=== PATIENT | male | born 1985 | race Caucasian/White ===

== ENCOUNTER 2017-03-28 12:42 | Emergency (ER) | payer OTHER | END 2017-03-28 13:47 | disposition home or self-care (01) | LOC: FER 12:42 | DX: S33.5XXA Sprain of ligaments of lumbar spine, initial encounter (principal); F17.210 Nicotine dependence, cigarettes, uncomplicated; W51.XXXA Accidental striking against or bumped into by another person, initial encounter; Y92.009 Unspecified place in unspecified non-institutional (private) residence as the place of occurrence of the external cause | CPT/HCPCS: J1100 ==

== ENCOUNTER 2017-04-20 20:48 | Emergency (ER) | payer OTHER | END 2017-04-20 22:30 | disposition home or self-care (01) | LOC: FER 20:48 | DX: S06.0X0A Concussion without loss of consciousness, initial encounter (principal); S01.81XA Laceration without foreign body of other part of head, initial encounter; W27.8XXA Contact with other nonpowered hand tool, initial encounter; F17.210 Nicotine dependence, cigarettes, uncomplicated | CPT/HCPCS: 70450; J1885 ==